=== PATIENT | male | born 1965 | race Caucasian/White ===

== ENCOUNTER → 2016-03-05 | Outpatient (CLI) | payer BC ==
[2016-03-05 07:46] LABS: ALT 36 U/L (21-72); AST 28 U/L (17-59); Alkaline Phosphatase 71 U/L (38-126); Anion Gap 9 mmol/L; Blood Urea Nitrogen 18 mg/dL (9-20); Calcium 9.1 mg/dL (8.4-10.2); Carbon Dioxide 31 mmol/L (22-30); Chloride 104 mmol/L (98-107); Cholesterol 161 mg/dL (<200); Glucose 119 mg/dL (74-99); HDL Cholesterol 41 mg/dL (40-60); Non-African American GFR(MDRD) >60 (>60 ml/min/1.73 sqM); Potassium 4.7 mmol/L (3.5-5.1); Sodium 144 mmol/L (137-145); Total Bilirubin 0.8 mg/dL (0.2-1.3); Total Protein 6.6 g/dL (6.3-8.2); Triglycerides 46 mg/dL (<150)
== END | disposition home or self-care (01) ==
LOC: LABWHC1 06:37
PROVIDERS: ATTEND Internal Medicine Endocrinology, Diabetes & Metabolism
DX: E10.65 Type 1 diabetes mellitus with hyperglycemia (principal)
CPT/HCPCS: 36415; 80053; 80061; 82043

== ENCOUNTER 2016-03-31 07:44 | Day surgery (SDC) | payer BC ==
[2016-03-26 09:19] VITALS: BMI 27.1
[2016-03-31 08:10] VITALS: RESP 16; TEMP 98
[2016-03-31] MEDS: LIDOCAINE 1% 20 ML VIAL (10MG/ML) FOR IV START INTRADERMA PRN (08:28)
[2016-03-31] MEDS: LACTATED RINGERS 1,000 ML IV SCH (08:28)
[2016-03-31 08:33] LABS: Glucose,Whole Blood 184 mg/dL (75-99)
[2016-03-31] MEDS ORDERED: PROPOFOL 10 MG/ML 20 ML VIAL IV ONE (09:02)
--- NOTE | 2016-03-31 09:35 | P.PCN ---
Date of Procedure: 03/31/16 Procedure(s) Performed: BRIEF HISTORY: Patient is a 50-year-old pleasant white male, scheduled for an elective colonoscopy as a part of evaluation of prior history of colon polyps. Last colonoscopy was done in May 1999 and was noted to have rectal polyps that were removed and all of which showed inflamed mucosal polyp with no evidence of dysplasia. The patient was noted to have these rectal polyps in 2012 and since then has been having annual sigmoidoscopies. PROCEDURE PERFORMED: Colonoscopy with snare polypectomy PREOPERATIVE DIAGNOSIS: follow-up colon polyp IV sedation per Anesthesia. PROCEDURE: After informed consent was obtained, the patient, was brought into the endoscopy unit. IV conscious sedation was administered by Anesthesia under continuous monitoring. Initially the Olympus CF-160 flexible video colonoscope was then inserted in the rectum, gradually advanced into the cecum without any difficulty. Careful examination was performed as the scope was gradually being withdrawn. Ileocecal valve and the appendiceal orifice were visualized and appeared normal. Prep was excellent. Mucosa of the cecum, ascending colon, transverse colon, descending colon, appeared normal. In the distal sigmoid colon there was a 1 cm polyp removed by snare polypectomy. In the rectum there were 3 polyps measuring 1 cm, 3 cm and 2 cm polyps which were removed by snare polypectomy. The largest polyp which was 3 cm broad-based was not completely removed. Retroflexion was performed in the rectum and no lesions were seen. The patient tolerated the procedure well. IMPRESSION: 1 cm rectal distal sigmoid polyp status post polypectomy 1 cm, 2 cm and 3 cm broad-based mid rectal polyps status post piecemeal snare polypectomy and the largest polyp could not be removed completely. RECOMMENDATIONS: Findings of this examination were discussed with the patient as well as his family. He was advised to follow with the biopsy results and he' ll be seen in the office in a week from now. Based the biopsy results will plan a repeat Sigmoidoscopy in 6 Months to One Year.
[2016-03-31 10:01] VITALS: BP 143/83; PULSE 74
== END 2016-03-31 10:33 | disposition home or self-care (01) ==
LOC: ORWHC2ENDO 07:44
PROVIDERS: ATTEND Internal Medicine Gastroenterology
DX: Z12.11 Encounter for screening for malignant neoplasm of colon (principal); D12.5 Benign neoplasm of sigmoid colon; K62.1 Rectal polyp; Z86.010 Personal history of colon polyps; I10 Essential (primary) hypertension; E78.5 Hyperlipidemia, unspecified; E11.9 Type 2 diabetes mellitus without complications; Z79.4 Long term (current) use of insulin; Z96.41 Presence of insulin pump (external) (internal); Z79.899 Other long term (current) drug therapy
CPT/HCPCS: 88305; 45385; J2704; 99153

== ENCOUNTER → 2017-01-22 | Outpatient (CLI) | payer BC ==
[2017-01-22 09:53] LABS: CH 32.1; CHCM 32.3; HCT 46.1 % (39.0-53.0); HDW 2.26; HGB 14.8 gm/dL (13.0-17.5); MCH 32.2 pg (25.0-35.0); MCHC 32.2 g/dL (31.0-37.0); MCV 99.8 fL (80.0-100.0); RBC 4.62 m/uL (4.30-5.90); RDW 14.2 % (11.5-15.5); WBC 5.7 k/uL (3.8-10.6)
[2017-01-22 10:13] LABS: ALT 50 U/L (21-72); AST 27 U/L (17-59); Alkaline Phosphatase 84 U/L (38-126); Anion Gap 7 mmol/L; Blood Urea Nitrogen 14 mg/dL (9-20); Calcium 9.6 mg/dL (8.4-10.2); Carbon Dioxide 31 mmol/L (22-30); Chloride 101 mmol/L (98-107); Cholesterol 149 mg/dL (<200); Glucose 167 mg/dL (74-99); HDL Cholesterol 47 mg/dL (40-60); Non-African American GFR(MDRD) >60 (>60 ml/min/1.73 sqM); Potassium 5.3 mmol/L (3.5-5.1); Sodium 139 mmol/L (137-145); Total Bilirubin 0.6 mg/dL (0.2-1.3)
== END | disposition home or self-care (01) ==
LOC: LABWHC1 09:22
PROVIDERS: ATTEND Internal Medicine Endocrinology, Diabetes & Metabolism
DX: E10.65 Type 1 diabetes mellitus with hyperglycemia (principal); I10 Essential (primary) hypertension
CPT/HCPCS: 36415; 80053; 80061; 83036; 84443; 85027

== ENCOUNTER → 2017-03-12 | Outpatient (CLI) | payer BC ==
[2017-03-12 07:25] LABS: HCT 44.7 % (39.0-53.0); HGB 14.4 gm/dL (13.0-17.5); MCH 31.3 pg (25.0-35.0); MCHC 32.3 g/dL (31.0-37.0); MCV 96.9 fL (80.0-100.0); Mean Platelet Volume 7.7; Platelet Count 248 k/uL (150-450); RBC 4.61 m/uL (4.30-5.90); RDW 12.9 % (11.5-15.5); WBC 6.1 k/uL (3.8-10.6)
[2017-03-12 07:39] LABS: ALT 35 U/L (21-72); AST 24 U/L (17-59); Alkaline Phosphatase 75 U/L (38-126); Anion Gap 9 mmol/L; Blood Urea Nitrogen 29 mg/dL (9-20); Calcium 9.5 mg/dL (8.4-10.2); Carbon Dioxide 29 mmol/L (22-30); Chloride 105 mmol/L (98-107); Cholesterol 143 mg/dL (<200); Glucose 78 mg/dL (74-99); HDL Cholesterol 42 mg/dL (40-60); LDL Cholesterol,Calculated 88 mg/dL (0-99); Potassium 4.5 mmol/L (3.5-5.1); Sodium 143 mmol/L (137-145); Total Bilirubin 0.6 mg/dL (0.2-1.3); Total Protein 6.7 g/dL (6.3-8.2); Triglycerides 64 mg/dL (<150)
[2017-03-12 12:40] LABS: Hemoglobin A1C 8.3 % (4.0-6.0)
== END | disposition home or self-care (01) ==
LOC: LABWHC1 07:07
PROVIDERS: ATTEND Physician Assistant Medical
DX: E11.9 Type 2 diabetes mellitus without complications (principal); I10 Essential (primary) hypertension
CPT/HCPCS: 36415; 80053; 80061; 83036; 84443; 85027

== ENCOUNTER 2017-04-14 05:57 | Day surgery (SDC) | payer BC ==
[2017-04-12 16:24] VITALS: BMI 27.1
--- NOTE | 2017-04-13 17:50 | HP ---
HISTORY AND PHYSICAL DATE OF ADMISSION: Surgery scheduled for 04/14/2017 HISTORY OF PRESENT ILLNESS: Francis Sparks is a 51-year-old patient seen with progressive right shoulder pain. Treatment options were discussed. He elected to proceed with right shoulder arthroscopy. Consent regarding procedure was obtained. Medical clearance was provided by Dr. Olea. Pulmonary clearance was provided by Dr. Rushing. PAST MEDICAL HISTORY: Hyperlipidemia, insulin-dependent diabetes, hypertension. PAST SURGICAL HISTORY: Noncontributory. DAILY MEDICATIONS: Atorvastatin, NovoLog, ramipril. ALLERGIES: None. SOCIAL HISTORY: Patient denies tobacco use. PHYSICAL EXAMINATION: Evaluation right shoulder flexion is 90 degrees, abduction is 80 degrees. External rotation is 20 degrees. Tenderness along the anterolateral acromion rotator cuff insertion site. Positive impingement sign at 120. Distal neurovascular exam is intact. RADIOGRAPHS: Radiographs of the right shoulder revealed a type 2 anterior acromion. Cystic changes of the greater tuberosity. An MRI of the shoulder revealed abnormality of the rotator cuff as well as acromioclavicular joint osteoarthritis and impingement. IMPRESSION: Right shoulder impingement with possible rotator cuff tear and acromioclavicular joint osteoarthritis. PLAN: Right shoulder arthroscopy, subacromial decompression, possible arthroscopic rotator cuff repair, possible Carrol procedure, lysis of adhesions and debridement. MMODL / IJN: [id number] /
[~2017-04-14 05:57] MED LIST: DEXAMETHASONE SOD PHOSPHATE 10 MG/ML 1 ML VIAL IV ONE; HYDROmorphone 0.5 MG/0.5 ML SYRINGE IVP PRN; LACTATED RINGERS 1,000 ML IV SCH; LIDOCAINE 1% 20 ML VIAL (10MG/ML) FOR IV START INTRADERMA PRN; ONDANSETRON 4 MG/2 ML VIAL IVP ONE; SCOPOLAMINE 1.5MG/72HR PATCH TRANSDERM ONE; ceFAZolin IN SWFI 2 GM/20 ML SYRINGE IVP ONE
[2017-04-14 06:40] LABS: Glucose,Whole Blood 146 mg/dL (75-99)
[2017-04-14] MEDS: MIDAZOLAM 2 MG/2 ML VIAL IV PRN ×2 (06:50→07:02)
[2017-04-14] MEDS ORDERED: PROPOFOL 10 MG/ML 20 ML VIAL IV ONE (07:24)
[2017-04-14] MEDS ORDERED: PHENYLEPHRINE-0.9% NACL SYG 1 MG/10 ML SYRINGE ONE (07:24)
[2017-04-14] MEDS ORDERED: SUCCINYLCHOLINE CHLORIDE 100 MG/5 ML SYR IV ONE (07:24)
[2017-04-14] MEDS ORDERED: ROPIVACAINE 5 MG/ML 30 ML VIAL ONE (07:24)
[2017-04-14] MEDS ORDERED: LIDOCAINE 1% INJ 10MG/ML (20 ML MDV) ONE (07:24)
[2017-04-14] MEDS ORDERED: fentaNYL (PF) 50 MCG/ML 2 ML AMP ONE (07:24)
[2017-04-14] MEDS ORDERED: LIDOCAINE 2%-EPI 1:100,000 20 ML VIAL ONE (07:24)
[2017-04-14] MEDS ORDERED: MIDAZOLAM 2 MG/2 ML VIAL ONE (07:24)
[2017-04-14] MEDS ORDERED: LACTATED RINGERS 1,000 ML IV ONE (07:56)
[2017-04-14 08:49] LABS: Glucose,Whole Blood 222 mg/dL (75-99)
[2017-04-14 09:19] LABS: Glucose,Whole Blood 200 mg/dL (75-99)
--- NOTE | 2017-04-14 09:25 | P.OP ---
Date of Procedure: 04/14/17 Preoperative Diagnosis: Right shoulder impingement Postoperative Diagnosis: 1. Right shoulder rotator cuff tear 2. Right shoulder impingement 3. Right shoulder acromioclavicular joint osteoarthritis 4. Right shoulder superficial labral tear Procedure(s) Performed: 1. Right shoulder arthroscopic rotator cuff repair 2. Right shoulder arthroscopic subacromial decompression 3. Right shoulder arthroscopic Carrol procedure 4. Right shoulder arthroscopic debridement labral tear Implants: 1-5.5 peek anchors Anesthesia: GETA, regional (Interscalene block) Surgeon: Cal [facility] [employer] Toll Wire Chief #1: Chris Davis Estimated Blood Loss (ml): 13 Pathology: none sent Condition: stable Disposition: PACU Indications for Procedure: 51-year-old patient seen with progressive right shoulder pain. After having treatment options discussed, he elected to proceed with arthroscopy. Operative Findings: see description of procedure Description of Procedure: Patient underwent a shoulder block by department of anesthesia. The patient was then taken to the operative suite. The patient underwent a general anesthetic by the department of anesthesia. The patient was placed into a lateral position and secured. There was appropriate padding of the bony prominence. Right shoulder was then prepped and draped in normal sterile orthopedic fashion. We placed the extremity in 10 pounds of longitudinal traction. A posterior incision was now made for a posterior working portal site. The trocar and cannula were inserted into the glenohumeral joint. Arthroscopy was initiated. Spinal needle was now inserted anteriorly, to ascertain the anterior working portal site. An incision was now made in that area, a trocar was inserted followed by a probe. Was superficial tearing of the anterior labrum present. There was some superficial tearing of the superior labrum present. The biceps tendon was mildly hyperemic but no evidence for any partial tearing. The anchor appeared stable. There were mild grade 1 chondromalacia changes glenohumeral joint. I debrided the labral tears down to stable tissue. The residual labrum was stable. Instruments were now removed from glenohumeral joint. Utilizing the posterior working portal site, the trocar and cannula were inserted into the subacromial space. Arthroscopy initiated. I made an incision 2 fingerbreadths lateral to the acromion. I introduced my trocar followed by my ArthroCare ablator. I now began ablating thick subacromial bursal tissue, which exposed the undersurface of the anterior acromion. This was diminished subacromial space. There was a very prominent anterior acromion. A motorized bur was introduced and a subacromial decompression was performed. I also excised some osteophytes off the inferior aspect of the distal clavicle. The AC joint was visualized and noted to be fairly arthritic. Our motorized bur was introduced in the anterior portal site and a Carrol procedure was performed without difficulty, decompressing the AC joint nicely. I turned my attention to the rotator cuff. There was some superficial tearing noted of the midportion of the distal supraspinatus. I debrided that down to stable tissue. I noted an area of partial tearing more anteriorly. I debrided that down to stable tissue. I probed the area and noted a full thickness perforation. That area was now debrided down to stable tissue. I noted about a 1 cm defect. It was freely mobile over the footprint. I abraded the footprint with a motorized bur. I passed 2 everted mattress sutures through good bites of rotator cuff tendon. I introduced one single 5.5 peek anchor compressing the tendon along the footprint nicely. Residual suture limbs were clipped. The repair was probed and found to be stable. I injected 1 mL of UCT intra-articular. Instruments now removed from the portal sites. All portal sites were approximated with nylon suture. Sterile dressings were applied followed by a shoulder immobilizer. Ousmane FRANCOIS assisted with the procedure. The patient was awakened, transferred to a bed, and taken to recovery in stable condition.
[2017-04-14 09:34] VITALS: TEMP 97.2
[2017-04-14 09:38] VITALS: RESP 16
[2017-04-14 10:07] LABS: Glucose,Whole Blood 220 mg/dL (75-99)
[2017-04-14] MEDS ORDERED: HYDROcodone/APAP 7.5-325MG 1 EACH TAB PO ONE (10:15)
[2017-04-14 10:26] VITALS: BP 155/89; PULSE 89
--- NOTE | 2017-04-14 12:51 | P.ONQ ---
Anesthesiology Proc Note - PNB - Peripheral Nerve Block Performed Right Interscalene Indication: Acute Post-Operative Pain, Requested by physician (Smiley) Sedation Type: Sedate with meaningful contact maintained Preparation: Sterile Dressing Position: Supine Catheter: None Needle Types: Other (see comment) (Linh) Needle Size: 50mm (2") Needle Gauge: 21 Technique: Ultrasound (0.5% Ropivacaine 15cc, Lidocaine 1% with 1:100:000 epi) Blood Aspirated: No Pain Paresthesia on Injection Noted: No Resistance on Injection: Normal Events: Uneventful and Well Tolerated
== END 2017-04-14 11:05 | disposition home or self-care (01) ==
LOC: OR 05:57
PROVIDERS: ATTEND Orthopaedic Surgery
DX: M75.101 Unspecified rotator cuff tear or rupture of right shoulder, not specified as traumatic (principal); M25.811 Other specified joint disorders, right shoulder; M19.011 Primary osteoarthritis, right shoulder; S43.401A Unspecified sprain of right shoulder joint, initial encounter; X58.XXXA Exposure to other specified factors, initial encounter; M94.211 Chondromalacia, right shoulder; M25.711 Osteophyte, right shoulder; E78.5 Hyperlipidemia, unspecified; E11.9 Type 2 diabetes mellitus without complications; Z79.4 Long term (current) use of insulin; I10 Essential (primary) hypertension; Z79.899 Other long term (current) drug therapy; Z79.1 Long term (current) use of non-steroidal anti-inflammatories (NSAID)
CPT/HCPCS: 64415

== ENCOUNTER → 2017-08-26 | Outpatient (CLI) | payer BC | END | disposition home or self-care (01) | LOC: LABWHC1 16:39 | PROVIDERS: ATTEND Family Medicine | DX: Z13.88 Encounter for screening for disorder due to exposure to contaminants (principal) | CPT/HCPCS: 36415; 83655 ==

== ENCOUNTER → 2017-10-08 | Outpatient (CLI) | payer BC ==
[2017-10-08 08:36] LABS: Anion Gap 4 mmol/L; Calcium 9.1 mg/dL (8.4-10.2); Carbon Dioxide 32 mmol/L (22-30); Chloride 105 mmol/L (98-107); Cholesterol 147 mg/dL (<200); Glucose 97 mg/dL (74-99); HDL Cholesterol 38 mg/dL (40-60); LDL Cholesterol,Calculated 94 mg/dL (0-99); Sodium 141 mmol/L (137-145); Total Bilirubin 0.7 mg/dL (0.2-1.3); Total Protein 6.6 g/dL (6.3-8.2); Triglycerides 73 mg/dL (<150)
[2017-10-08 08:47] LABS: ALT 32 U/L (21-72); AST 28 U/L (17-59); Alkaline Phosphatase 62 U/L (38-126); Blood Urea Nitrogen 19 mg/dL (9-20)
[2017-10-08 17:22] LABS: Hemoglobin A1C 9.6 % (4.0-6.0)
== END | disposition home or self-care (01) ==
LOC: LABWHC1 08:05
PROVIDERS: ATTEND Internal Medicine Endocrinology, Diabetes & Metabolism
DX: E10.65 Type 1 diabetes mellitus with hyperglycemia (principal)
CPT/HCPCS: 36415; 80053; 80061; 82043; 82570; 83036; 84443

== ENCOUNTER → 2018-02-11 | Outpatient (CLI) | payer BC ==
[2018-02-11 16:54] LABS: ALT 27 U/L (10-49); AST 29 U/L (14-35); Albumin/Globulin Ratio 2.21 (1.20-2.10); Alkaline Phosphatase 69 U/L (41-126); Calcium 9.2 mg/dL (8.7-10.3); Carbon Dioxide 29.3 mmol/L (21.6-31.8); Chloride 106 mmol/L (96-109); Cholesterol 138 mg/dL (0-200); Globulin 1.9 g/dL (2.1-3.7); Glucose 110 mg/dL (70-110); Potassium 5.5 mmol/L (3.5-5.5); Sodium 140 mmol/L (135-145); Total Bilirubin 0.8 mg/dL (0.2-1.2); Total Protein 6.1 g/dL (6.2-8.2); Triglycerides <50.0 mg/dL (0.0-149.0); VLDL Calculation 9.98 mg/dL (5.00-40.00)
[2018-02-11 18:34] LABS: Hemoglobin A1C 7.6 % (4.0-6.0)
== END | disposition home or self-care (01) ==
LOC: LABWHC1 08:51
PROVIDERS: ATTEND Internal Medicine Endocrinology, Diabetes & Metabolism
DX: E10.65 Type 1 diabetes mellitus with hyperglycemia (principal)
CPT/HCPCS: 36415; 80053; 80061; 82043; 82570; 83036; 84443

== ENCOUNTER → 2018-09-02 | Outpatient (CLI) | payer BC ==
[2018-09-02 17:11] LABS: African American GFR (CKD) 99.8 (60.0-200.0); Albumin 4.1 g/dL (3.80-4.90); Albumin/Globulin Ratio 1.95 (1.60-3.17); Anion Gap 3.2 mmol/L (4.00-12.00); Calcium 9.2 mg/dL (8.7-10.3); Carbon Dioxide 28.8 mmol/L (21.6-31.8); Globulin 2.1 g/dL (1.6-3.3); LDL Cholesterol,Calculated 93.6 mg/dL (0.0-131.0); Potassium 5.3 mmol/L (3.5-5.5); Total Bilirubin 0.6 mg/dL (0.3-1.2); Total Protein 6.2 g/dL (6.2-8.2); VLDL Calculation 11.4 mg/dL (5.00-40.00)
[2018-09-02 20:37] LABS: Hemoglobin A1C 8.5 % (4.0-6.0)
== END | disposition home or self-care (01) ==
LOC: LABWHC1 08:01
PROVIDERS: ATTEND Internal Medicine Endocrinology, Diabetes & Metabolism
DX: E10.65 Type 1 diabetes mellitus with hyperglycemia (principal)
CPT/HCPCS: 36415; 80053; 80061; 82043; 82570; 83036; 84443

== ENCOUNTER → 2019-03-03 | Outpatient (CLI) | payer BC ==
[2019-03-03 16:58] LABS: Microalbumin Creatinine Ratio <30 mg/g Creat (0-30)
[2019-03-03 17:20] LABS: African American GFR (CKD) 99.1 (60.0-200.0); Anion Gap 4.5 mmol/L (4.00-12.00); Calcium 9.1 mg/dL (8.7-10.3); Carbon Dioxide 31.5 mmol/L (21.6-31.8); Chol/HDL Ratio 4.27; Non-African American GFR(CKD) 85.5 (60.0-200.0); Total Bilirubin 0.6 mg/dL (0.3-1.2)
[2019-03-03 17:52] LABS: Hemoglobin A1C 8.3 % (4.0-6.0)
== END | disposition home or self-care (01) ==
LOC: LABWHC1 09:00
PROVIDERS: ATTEND Internal Medicine Endocrinology, Diabetes & Metabolism
DX: E10.65 Type 1 diabetes mellitus with hyperglycemia (principal)
CPT/HCPCS: 36415; 80053; 80061; 82043; 82570; 83036; 84443

== ENCOUNTER → 2020-01-05 | Outpatient (CLI) | payer BC ==
[2020-01-05 11:23] LABS: African American GFR (CKD) 98.5 (60.0-200.0); Albumin 4.4 g/dL (3.80-4.90); Albumin/Globulin Ratio 1.91 (1.60-3.17); Anion Gap 4.9 mmol/L (4.00-12.00); Calcium 9.4 mg/dL (8.7-10.3); Carbon Dioxide 30.1 mmol/L (21.6-31.8); Chol/HDL Ratio 4.05; Globulin 2.3 g/dL (1.6-3.3); LDL Cholesterol,Calculated 115.2 mg/dL (0.0-131.0); Non-African American GFR(CKD) 84.9 (60.0-200.0); Potassium 5.2 mmol/L (3.5-5.5); Total Bilirubin 0.8 mg/dL (0.3-1.2); Total Protein 6.7 g/dL (6.2-8.2); VLDL Calculation 12.8 mg/dL (5.00-40.00)
[2020-01-05 16:07] LABS: Hemoglobin A1C 8.2 % (4.0-6.0)
== END | disposition home or self-care (01) ==
LOC: LABMAIN 07:20
PROVIDERS: ATTEND Internal Medicine Endocrinology, Diabetes & Metabolism
DX: E10.65 Type 1 diabetes mellitus with hyperglycemia (principal)
CPT/HCPCS: 36415; 80053; 80061; 82043; 82570; 83036; 84443

== ENCOUNTER → 2020-04-04 | Outpatient (CLI) | payer BC ==
[2020-04-04 10:49] LABS: African American GFR (CKD) 98.5 (60.0-200.0); Albumin 4.2 g/dL (3.80-4.90); Albumin/Globulin Ratio 2.21 (1.60-3.17); Anion Gap 4.4 mmol/L (4.00-12.00); Calcium 9.2 mg/dL (8.7-10.3); Carbon Dioxide 31.6 mmol/L (21.6-31.8); Chol/HDL Ratio 3.33; Globulin 1.9 g/dL (1.6-3.3); Non-African American GFR(CKD) 84.9 (60.0-200.0); Potassium 5.1 mmol/L (3.5-5.5); Total Bilirubin 0.8 mg/dL (0.2-1.2); Total Protein 6.1 g/dL (6.2-8.2)
[2020-04-04 10:56] LABS: Microalbumin Creatinine Ratio <30 mg/g Creat (0-30); Urine Creatinine 106.1 mg/dL
[2020-04-04 14:26] LABS: Hemoglobin A1C 8.6 % (4.0-6.0)
== END | disposition home or self-care (01) ==
LOC: LABWHC1 07:41
PROVIDERS: ATTEND Internal Medicine Endocrinology, Diabetes & Metabolism
DX: E10.65 Type 1 diabetes mellitus with hyperglycemia (principal)
CPT/HCPCS: 36415; 80053; 80061; 82043; 82570; 83036; 84443

== ENCOUNTER → 2020-11-07 | Outpatient (CLI) | payer BC ==
[2020-11-07 17:27] LABS: Hemoglobin A1C 8.2 % (4.0-6.0)
[2020-11-07 22:32] LABS: African American GFR (CKD) 111.8 (60.0-200.0); Albumin 4.1 g/dL (3.80-4.90); Albumin/Globulin Ratio 1.78 (1.60-3.17); Anion Gap 10.8 mmol/L (4.00-12.00); BUN/Creat Ratio 17.78 Ratio (12.00-20.00); Carbon Dioxide 23.2 mmol/L (21.6-31.8); Chol/HDL Ratio 3.79; Globulin 2.3 g/dL (1.6-3.3); LDL Cholesterol,Calculated 91.4 mg/dL (0.0-131.0); Non-African American GFR(CKD) 96.5 (60.0-200.0); Potassium 4.7 mmol/L (3.5-5.5); Total Bilirubin 0.8 mg/dL (0.2-1.2); Total Protein 6.4 g/dL (6.2-8.2); VLDL Calculation 14.6 mg/dL (5.00-40.00)
[2020-11-10 15:33] LABS: Urine Creatinine 180.2 mg/dL
== END | disposition home or self-care (01) ==
LOC: LABWHC1 08:39
PROVIDERS: ATTEND Internal Medicine Endocrinology, Diabetes & Metabolism
DX: E10.65 Type 1 diabetes mellitus with hyperglycemia (principal)
CPT/HCPCS: 36415; 80053; 80061; 82043; 82570; 83036; 84443

== ENCOUNTER → 2020-12-22 | Outpatient (CLI) | payer BC ==
--- NOTE | 2020-12-22 15:16 | NM ---
EXAMINATION TYPE: NM stress cardiolite complete DATE OF EXAM: 12/22/2020 COMPARISON: NONE HISTORY: RO7.9, chest pain TECHNIQUE: After the intravenous administration of 10.58 mCi Tc 99m Sestamibi - Rest images obtained 60 minutes post injection. The patient exercised using a VAMSI protocol and 1 minute prior to peak exercise was injected with 24.8 mCi Tc 99m Sestamibi - Stress images obtained 30 minutes post inject ion. FINDINGS: Targeted heart rate was achieved during performance of the study, patient achieved 92% of predicted m aximal heart rate. Review of stress and rest SPECT images demonstrates no distinct perfusion abnormal ity. Gated analysis shows normal wall motion with an estimated left ventricular ejection fraction of 59 %. IMPRESSION: No scintigraphic evidence for reversible ischemia
--- NOTE | 2020-12-22 15:42 | EST ---
EXERCISE STRESS AGE: 55 SEX: M HT: 6' WT: 210 PROTOCOL: Cardiolite Stress Test STAGE: 3 DURATION OF EXERCISE: 9:15 HEART RATE REST: 73 BLOOD PRESSURE REST: 153/85 MAXIMUM HEART RATE ACHIEVED: 151 MAXIMUM BLOOD PRESSURE: 218/85 85% MPHR: 140 100% MPHR: 165 METS: 10.6 INDICATIONS: Chest pain. CLINICAL INFORMATION: Baseline EKG shows sinus rhythm, normal axis, normal intervals. Patient exercised on Vinayak protocol for a total of 9 minutes, achieving 10 METS, 92% of predicted maximal heart rate, without chest pain or diagnostic ST-segment depression. CONCLUSIONS: 1. Good exercise tolerance. 2. Negative stress test by EKG criteria. 3. Cardiolite portion of the stress test will be reported separately. MMODL / IJN: [id number] /
== END | disposition home or self-care (01) ==
LOC: RADNMMAIN 08:16
PROVIDERS: ATTEND Family Medicine
DX: R07.9 Chest pain, unspecified (principal)
CPT/HCPCS: 93017; 78452; A9500

== ENCOUNTER → 2021-02-25 | Day surgery (SDC) | payer BC ==
[~2021-02-25] MED LIST changes: -DEXAMETHASONE SOD PHOSPHATE 10 MG/ML 1 ML VIAL IV ONE; -HYDROmorphone 0.5 MG/0.5 ML SYRINGE IVP PRN; +LIDOCAINE 1% (10MG/ML) FOR IV START INTRADERMA PRN; -LIDOCAINE 1% 20 ML VIAL (10MG/ML) FOR IV START INTRADERMA PRN; -ONDANSETRON 4 MG/2 ML VIAL IVP ONE; +PROPOFOL 10 MG/ML 20 ML VIAL IV ONE; -SCOPOLAMINE 1.5MG/72HR PATCH TRANSDERM ONE; -ceFAZolin IN SWFI 2 GM/20 ML SYRINGE IVP ONE
[2021-02-25 07:10] LABS: Glucose,Whole Blood 225 mg/dL (75-99)
[2021-02-25 07:13] VITALS: RESP 16; TEMP 98.2
--- NOTE | 2021-02-25 07:49 | P.PCN ---
Date of Procedure: 02/25/21 Procedure(s) Performed: BRIEF HISTORY: Patient is a 55-year-old pleasant white male scheduled for an elective colonoscopy as a part of surveillance of multiple hyperplastic polyps noted in the rectum and sigmoid colon in the last 5 years duration. He had large sessile rectal hyperplastic polyps for which she underwent colonoscopy with snare polypectomy at [facility] in April 2018 and biopsies revealed hyperplastic polyp noted suggestive dysphagia. He scheduled for a surveillance colonoscopy today. PROCEDURE PERFORMED: Colonoscopy with snare polypectomy and Endo Clip placement. PREOPERATIVE DIAGNOSIS: Follow-up large rectal polyps. IV sedation per Anesthesia. PROCEDURE: After informed consent was obtained, the patient, was brought into the endoscopy unit. IV sedation was administered by Anesthesia under continuous monitoring. Digital rectal examination was normal. Initially the Olympus CF-160 flexible video colonoscope was then inserted in the rectum, gradually advanced into the cecum without any difficulty. Careful examination was performed as the scope was gradually being withdrawn. Ileocecal valve and the appendiceal orifice were visualized and appeared normal. Prep was fair.. Mucosa of the cecum, ascending colon, transverse colon, descending colon, appeared normal. In the sigmoid: There were at least 7 or 8 polyps all measuring between 3-6 mm in size which were removed by snare polypectomy. In the mid rectum there was a 3 cm slightly raised polyp which was removed by piecemeal snare polypectomy followed by Endo Clip placement. Adjacent to this area there were 3 or 4 small sessile polyp that was removed by snare polypectomy. Some exudates noted in the distal rectum. Retroflexion was performed in the rectum and no lesions were seen. The patient tolerated the procedure well. IMPRESSION: Multiple polyps measuring 3-6 m in size located in the sigmoid colon status post polypectomy Large sessile mid rectal polyp measuring 3 cm in size with exudates status post piecemeal snare polypectomy and partial polypectomy accomplished followed by Endo Clip placement RECOMMENDATIONS: Findings of this examination were discussed with the patient as well as his family. He was advised to follow with the biopsy results. He'll be seen in office in 1 week and based on that was biopsy results will plan a repeat Sigmoidoscopy in 6 months to one year..
[2021-02-25 07:53] VITALS: PULSE 80
[2021-02-25 08:08] VITALS: BP 131/85
== END ==
LOC: ORWHC2ENDO 06:19
PROVIDERS: ATTEND Internal Medicine Gastroenterology
DX: K62.1 Rectal polyp (principal)
CPT/HCPCS: 45382; 45385; J2704; 88305

== ENCOUNTER 2021-04-30 20:22 | Emergency (ER) | payer BC ==
[2021-04-30 21:01] VITALS: RESP 16; TEMP 97.9
[2021-04-30] MEDS ORDERED: PENICILLIN V POTASSIUM 250 MG TAB PO STA (22:00)
[2021-04-30] MEDS ORDERED: ACETAMINOPHEN TAB 500 MG TAB PO STA (22:01)
--- NOTE | 2021-04-30 22:04 | ED ---
ENT HPI - General Chief complaint: Dental/Oral Stated complaint: Oral pain Time Seen by Provider: 04/30/21 21:47 Source: patient, RN notes reviewed Mode of arrival: ambulatory Limitations: no limitations - History of Present Illness Initial comments: This is a pleasant, 55-year-old diabetic male presents to the emergency back complaining of left lower molar pain which isn't bothering him for one day. He states when he bites down he feels some pressure over the area. Also noticed a swollen lymph node in the left submandibular area. No airway problems. No difficulty with swallowing. No ear pain. No fever or chills. Patient is a nonsmoker. He has not seen a dentist. Insulin controlled diabetic. Blood sugar running just over 200. No headache, no fever or chills, no changes in vision or hearing, no sore throat or difficulty with speech, no neck pain, no chest pain or shortness of breath, no abdominal pain, no nausea or vomiting, no changes in urination or bowel movements, no numbness or tingling, no extremity pain, no skin rashes or lesions. MD complaint: tooth pain - Related Data Home Medications Medication Instructions Recorded Confirmed INSULIN ASPART (NovoLOG) [NovoLOG] 0 unit SQ CONTINUOUS 05/27/14 02/25/21 Atorvastatin [Lipitor] 40 mg PO HS 05/29/14 02/25/21 lisinopriL 30 mg PO HS 02/19/21 02/25/21 Previous Rx's Medication Instructions Recorded Acetaminophen [Tylenol] 500 mg PO Q4-6H PRN #24 tab 04/30/21 Ibuprofen [Motrin] 600 mg PO Q8HR PRN #30 tab 04/30/21 Penicillin V Potassium [Pen Vee K] 500 mg PO QID #40 tablet 04/30/21 Allergies Allergy/AdvReac Type Severity Reaction Status Date / Time No Known Allergies Allergy Verified 04/30/21 21:01 Review of Systems ROS Statement: Those systems with pertinent positive or pertinent negative responses have been documented in the HPI. ROS Other: All systems not noted in ROS Statement are negative. Past Medical History Past Medical History: Diabetes Mellitus, Hyperlipidemia, Hypertension Additional Past Medical History / Comment(s): Insulin pump, Hx of colon polyps. History of Any Multi-Drug Resistant Organisms: None Reported Past Surgical History: Orthopedic Surgery Additional Past Surgical History / Comment(s): LEFT ROTATOR CUFF. Rt Hand Past Anesthesia/Blood Transfusion Reactions: No Reported Reaction Past Psychological History: No Psychological Hx Reported Smoking Status: Former smoker Past Alcohol Use History: None Reported Past Drug Use History: None Reported - Past Family History Brother(s) Family Medical History: Cancer General Exam - General Exam Comments Initial Comments: Healthy-appearing 55-year-old male in no acute distress. Vital signs stable, patient afebrile, capillary refill less than 2 seconds Limitations: no limitations General appearance: alert, in no apparent distress Head exam: Present: atraumatic, normocephalic, normal inspection Eye exam: Present: normal appearance, PERRL, EOMI. Absent: scleral icterus, conjunctival injection, periorbital swelling ENT exam: Present: normal exam, mucous membranes moist, TM's normal bilaterally, normal external ear exam Expanded Ear exam: Present: normal external inspection. Absent: auricular hematoma, auricular trauma Mouth exam: Present: normal external inspection, tongue normal. Absent: drooling, trismus, muffled voice, tongue elevation, laceration Teeth exam: Present: dental tenderness # (15), gingival enlargement, other (Patient has minimal edema noted adjacent to tooth #15. No evidence of intraoral cellulitis, no evidence of peritonsillar abscess, no evidence of deep space infection or airway compromise.). Absent: dental caries, fractured tooth # Neck exam: Present: normal inspection. Absent: tenderness, meningismus, lymphadenopathy Respiratory exam: Present: normal lung sounds bilaterally. Absent: respiratory distress, wheezes, rales, rhonchi, stridor Cardiovascular Exam: Present: regular rate, normal rhythm, normal heart sounds. Absent: systolic murmur, diastolic murmur, rubs, gallop, clicks GI/Abdominal exam: Present: soft, normal bowel sounds. Absent: distended, tenderness, guarding, rebound, rigid Extremities exam: Present: normal inspection, full ROM, normal capillary refill. Absent: tenderness, pedal edema, joint swelling, calf tenderness Back exam: Present: normal inspection Neurological exam: Present: alert, oriented X3, CN II-XII intact Psychiatric exam: Present: normal affect, normal mood Skin exam: Present: warm, dry, intact, normal color. Absent: rash Course Vital Signs 04/30/21 20:58 Temperature 97.9 F Pulse Rate 76 Respiratory 16 Rate Blood Pressure 155/76 O2 Sat by Pulse 99 Oximetry Medical Decision Making - Medical Decision Making Patient presents with isolated dental pain, probable early dental abscess. No evidence of deep space infection, peritonsillar abscess, or Juan angina. Patient was told to return to the ER for any signs or symptoms worsen. Told to return immediately if any other problems arise. All questions answered. Treatment plan discussed. Patient in agreement Every effort has been made to ensure accuracy of this dictation. However, due to the limitations of electronic medical records and dictation devices, errors in charting still occur. Patient told to follow up with dentist as soon as possible. Monitor sugars closely. Touch base with the regular physician. Patient in understanding. Pen VK 500 mg 4 times a day, patient can continue ibuprofen and acetaminophen as directed Disposition Clinical Impression: Dental infection, Toothache Disposition: HOME SELF-CARE Condition: Good Instructions (If sedation given, give patient instructions): Dental Abscess (ED), Toothache (ED) Additional Instructions: Follow-up with your regular physician as directed. Return to the ER immediately if any symptoms worsen, new symptoms arise, or any other problems develop. Make a follow-up appointment with a dentist as soon as possible. Call Tuesday morning. Also, your regular doctor. Take the antibiotics as directed. You can continue ibuprofen and Tylenol as well. Prescriptions: Ibuprofen [Motrin] 600 mg PO Q8HR PRN #30 tab PRN Reason: Pain Penicillin V Potassium [Pen Vee K] 500 mg PO QID #40 tablet Acetaminophen [Tylenol] 500 mg PO Q4-6H PRN #24 tab PRN Reason: Pain Is patient prescribed a controlled substance at d/c from ED?: No Referrals: Macie Olea DO [Primary Care Provider] - 1-2 days Time of Disposition: 22:04
[2021-04-30 23:03] VITALS: BP 137/62; PULSE 72
== END 2021-04-30 23:06 | disposition home or self-care (01) ==
LOC: EC 20:22
DX: K04.7 Periapical abscess without sinus (principal); K08.89 Other specified disorders of teeth and supporting structures; E11.9 Type 2 diabetes mellitus without complications; I10 Essential (primary) hypertension; Z87.891 Personal history of nicotine dependence

== ENCOUNTER → 2021-07-11 | Outpatient (CLI) | payer BC ==
[2021-07-11 11:31] LABS: ALT 18 U/L (10-49); AST 20 U/L (14-35); African American GFR (CKD) 97.8 (60.0-200.0); Albumin 3.7 g/dL (3.8-4.9); Albumin/Globulin Ratio 1.54 (1.60-3.17); Alkaline Phosphatase 67 U/L (41-126); Blood Urea Nitrogen 19.1 mg/dL (9.0-27.0); Calcium 8.8 mg/dL (8.7-10.3); Carbon Dioxide 27.6 mmol/L (20.0-27.5); Chloride 105 mmol/L (96-109); Chol/HDL Ratio 3.19 Ratio; Globulin 2.4 g/dL (1.6-3.3); Glucose 168 mg/dL (70-110); Non-African American GFR(CKD) 84.4 (60.0-200.0); Potassium 5.1 mmol/L (3.5-5.5); Sodium 140 mmol/L (135-145); Total Protein 6.1 g/dL (6.2-8.2); VLDL Calculation 10.46 mg/dL (5.00-40.00)
== END | disposition home or self-care (01) ==
LOC: LABWHC1 08:29
PROVIDERS: ATTEND Internal Medicine Endocrinology, Diabetes & Metabolism
DX: E10.65 Type 1 diabetes mellitus with hyperglycemia (principal)
CPT/HCPCS: 36415; 80053; 80061; 82043; 82570; 83036; 84443

== ENCOUNTER → 2022-02-25 | Outpatient (CLI) | payer BC ==
[2022-02-25 11:05] LABS: ALT 19 U/L (10-49); AST 19 U/L (14-35); African American GFR (CKD) 107.4 (60.0-200.0); Albumin 3.7 g/dL (3.8-4.9); Albumin/Globulin Ratio 1.95 (1.60-3.17); Alkaline Phosphatase 79 U/L (41-126); BUN/Creat Ratio 17.07 Ratio (12.00-20.00); Blood Urea Nitrogen 15.7 mg/dL (9.0-27.0); Carbon Dioxide 28.3 mmol/L (20.0-27.5); Chloride 104 mmol/L (96-109); Chol/HDL Ratio 3.85 Ratio; Globulin 1.9 g/dL (1.6-3.3); Glucose 151 mg/dL (70-110); Non-African American GFR(CKD) 92.7 (60.0-200.0); Potassium 4.9 mmol/L (3.5-5.5); Sodium 141 mmol/L (135-145); Total Protein 5.6 g/dL (6.2-8.2); VLDL Calculation 16.92 mg/dL (5.00-40.00)
[2022-02-25 11:08] LABS: Microalbumin Creatinine Ratio <30 mg/g Creat (0-30)
== END | disposition home or self-care (01) ==
LOC: LABWHC1 07:27
PROVIDERS: ATTEND Internal Medicine Endocrinology, Diabetes & Metabolism
DX: E10.65 Type 1 diabetes mellitus with hyperglycemia (principal)
CPT/HCPCS: 36415; 80053; 80061; 82043; 82570; 83036; 84443

== ENCOUNTER → 2022-05-21 | Outpatient (CLI) | payer BC ==
--- NOTE | 2022-05-22 09:34 | US ---
EXAMINATION TYPE: US kidneys/renal and bladder DATE OF EXAM: 05/21/2022 COMPARISON: CLINICAL HISTORY: N20.1 CALCULUS OF URETER. Hx left renal stone with hydronephrosis. No pain at this time. EXAM MEASUREMENTS: Right Kidney: 11.5 x 5.4 x 5.6 cm Left Kidney: 12.7 x 6.0 x 5.7 cm Right Kidney: No hydronephrosis or masses seen Left Kidney: No hydronephrosis or masses seen Bladder: Distended, anechoic Bilateral Jets not seen There is no evidence for hydronephrosis at this point in time. No nephrolithiasis is seen. No denia s are identified. The urinary bladder is anechoic. Bilateral ureteral jets are seen. IMPRESSION: Normal renal ultrasound.
== END | disposition home or self-care (01) ==
LOC: RADUSWWP 16:05
PROVIDERS: ATTEND Urology
DX: N20.1 Calculus of ureter (principal)
CPT/HCPCS: 76770

== ENCOUNTER → 2022-06-19 | Outpatient (CLI) | payer BC ==
[2022-06-19 13:50] LABS: Microalbumin Creatinine Ratio <30 mg/g Creat (0-30)
[2022-06-19 13:55] LABS: ALT 21 U/L (10-49); AST 25 U/L (14-35); African American GFR (CKD) 110.3 (60.0-200.0); Albumin 3.9 g/dL (3.8-4.9); Albumin/Globulin Ratio 1.86 (1.60-3.17); Alkaline Phosphatase 68 U/L (41-126); BUN/Creat Ratio 19.78 Ratio (12.00-20.00); Blood Urea Nitrogen 17.8 mg/dL (9.0-27.0); Calcium 9.2 mg/dL (8.7-10.3); Carbon Dioxide 28.7 mmol/L (20.0-27.5); Chloride 105 mmol/L (96-109); Chol/HDL Ratio 3.79 Ratio; Globulin 2.1 g/dL (1.6-3.3); Glucose 118 mg/dL (70-110); LDL Cholesterol,Calculated 105.8 mg/dL (0.0-131.0); Non-African American GFR(CKD) 95.1 (60.0-200.0); Potassium 4.9 mmol/L (3.5-5.5); Sodium 143 mmol/L (135-145); VLDL Calculation 14.88 mg/dL (5.00-40.00)
== END | disposition home or self-care (01) ==
LOC: LABWHC1 08:18
PROVIDERS: ATTEND Internal Medicine Endocrinology, Diabetes & Metabolism
DX: E10.65 Type 1 diabetes mellitus with hyperglycemia (principal)
CPT/HCPCS: 36415; 80053; 80061; 82043; 82570; 83036; 84443

== ENCOUNTER → 2023-01-28 | Outpatient (CLI) | payer BC ==
[2023-01-28 11:09] LABS: BUN/Creat Ratio 21.22 Ratio (12.00-20.00); Blood Urea Nitrogen 19.1 mg/dL (9.0-27.0); Chloride 104 mmol/L (96-109); Chol/HDL Ratio 4.12 Ratio; Glucose 176 mg/dL (70-110); LDL Cholesterol,Calculated 122.7 mg/dL (0.0-131.0); Potassium 5.2 mmol/L (3.5-5.5); Sodium 141 mmol/L (135-145); VLDL Calculation 12.86 mg/dL (5.00-40.00)
[2023-01-28 11:10] LABS: ALT 21 U/L (10-49); AST 22 U/L (14-35); Albumin 3.6 g/dL (3.8-4.9); Albumin/Globulin Ratio 1.89 Ratio (1.60-3.17); Alkaline Phosphatase 67 U/L (41-126); Calcium 8.9 mg/dL (8.7-10.3); Carbon Dioxide 27.8 mmol/L (21.6-31.8); Globulin 1.9 g/dL (1.6-3.3); Total Bilirubin 0.4 mg/dL (0.3-1.2); Total Protein 5.5 g/dL (6.2-8.2)
== END | disposition home or self-care (01) ==
LOC: LABWHC1 07:15
PROVIDERS: ATTEND Internal Medicine Endocrinology, Diabetes & Metabolism
DX: E10.65 Type 1 diabetes mellitus with hyperglycemia (principal)
CPT/HCPCS: 36415; 80053; 80061; 82043; 82570; 83036; 84443

== ENCOUNTER 2023-04-20 17:43 | Emergency (ER) | payer BC ==
--- NOTE | 2023-04-20 18:25 | ED ---
Abdominal Pain HPI <Marybeth Beach - Last Filed: 04/20/23 18:24> <Rody Cabrera - Last Filed: 04/23/23 08:33> - General Stated Complaint: kidney stone Time Seen by Provider: 04/20/23 18:24 - History of Present Illness Initial Comments: Patient is a 57-year-old gentleman presents emergency room complaints of some onset of right-sided flank pain and vomiting that started about a hour prior to arrival emergency room. Denies any history of kidney stones. Does drink a lot of coffee and tea. (Marybeth Beach) 57-year-old male presents to the emergency department with sudden onset right flank pain and vomiting that started 1 hour prior to hospital arrival. He has had history of similar pain in the past as he does have a history of kidney stones. Denies any hematuria. No fevers. Denies hematuria or dysuria. No diarrhea, constipation, black or bloody stools. He has not taken anything for the pain before coming in. No other alleviating, precipitating modifying factors (Rody Cabrera) - Related Data Home Medications Medication Instructions Recorded Confirmed INSULIN ASPART (NovoLOG) [NovoLOG] 0 unit SQ CONTINUOUS 05/27/14 02/25/21 Atorvastatin [Lipitor] 40 mg PO HS 05/29/14 02/25/21 lisinopriL 30 mg PO HS 02/19/21 02/25/21 Previous Rx's Medication Instructions Recorded Acetaminophen [Tylenol] 500 mg PO Q4-6H PRN #24 tab 04/30/21 Ibuprofen [Motrin] 600 mg PO Q8HR PRN #30 tab 04/30/21 Penicillin V Potassium [Pen Vee K] 500 mg PO QID #40 tablet 04/30/21 Ketorolac [Toradol] 10 mg PO Q8HR #15 tab 04/20/22 Tamsulosin [Flomax] 0.4 mg PO DAILY #7 cap 04/20/22 HYDROcodone/APAP 7.5-325MG [[place] 1 tab PO Q4HR PRN 3 Days #18 tab 04/20/23 7.5-325] Ondansetron Odt [Zofran Odt] 4 mg PO Q8HR PRN #15 tab 04/20/23 Tamsulosin HCl [Flomax] 0.4 mg PO DAILY #14 cap 04/20/23 Allergies Allergy/AdvReac Type Severity Reaction Status Date / Time No Known Allergies Allergy Verified 04/20/23 18:31 Review of Systems ROS Other: All systems not noted in ROS Statement are negative. <Marybeth Beach - Last Filed: 04/20/23 18:24> ROS Other: All systems not noted in ROS Statement are negative. <Rody Cabrera Diana - Last Filed: 04/23/23 08:33> ROS Statement: Those systems with pertinent positive or pertinent negative responses have been documented in the HPI. Past Medical History Past Medical History: Diabetes Mellitus, Hyperlipidemia, Hypertension Additional Past Medical History / Comment(s): Insulin pump, Hx of colon polyps. History of Any Multi-Drug Resistant Organisms: None Reported Past Surgical History: Orthopedic Surgery Additional Past Surgical History / Comment(s): LEFT ROTATOR CUFF. Rt Hand Past Anesthesia/Blood Transfusion Reactions: No Reported Reaction Past Psychological History: No Psychological Hx Reported Smoking Status: Former smoker Past Alcohol Use History: None Reported Past Drug Use History: None Reported - Past Family History Brother(s) Family Medical History: Cancer <Marybeth Beach - Last Filed: 04/20/23 18:24> General Exam <Marybeth Beach - Last Filed: 04/20/23 18:24> General appearance: alert, in no apparent distress Head exam: Present: atraumatic, normocephalic, normal inspection Eye exam: Present: normal appearance, PERRL, EOMI. Absent: scleral icterus, conjunctival injection, periorbital swelling ENT exam: Present: normal exam, mucous membranes moist Neck exam: Present: normal inspection. Absent: tenderness, meningismus, lymphadenopathy Respiratory exam: Present: normal lung sounds bilaterally. Absent: respiratory distress, wheezes, rales, rhonchi, stridor Cardiovascular Exam: Present: regular rate, normal rhythm, normal heart sounds. Absent: systolic murmur, diastolic murmur, rubs, gallop, clicks GI/Abdominal exam: Present: soft, normal bowel sounds. Absent: distended, tenderness, guarding, rebound, rigid Extremities exam: Present: normal inspection, full ROM, normal capillary refill. Absent: tenderness, pedal edema, joint swelling, calf tenderness Back exam: Present: normal inspection Neurological exam: Present: alert, oriented X3, CN II-XII intact Psychiatric exam: Present: normal affect, normal mood Skin exam: Present: warm, dry, intact, normal color. Absent: rash <Rody Cabrera - Last Filed: 04/23/23 08:33> - General Exam Comments Initial Comments: Visual Physical Exam Vital signs reviewed General: Well-appearing, nontoxic, no acute distress. Head: Normocephalic, atraumatic Eyes: PERRLA, EOMI ENT: Airway patent Chest: Nonlabored breathing Skin: No visual rash, normal skin tone Neuro: Alert and oriented 3 Musculoskeletal: No gross abnormalities (Marybeth Beach) Course Vital Signs 04/20/23 04/20/23 04/20/23 18:28 22:20 23:47 Temperature 99.0 F Pulse Rate 76 71 70 Respiratory 18 16 16 Rate Blood Pressure 167/80 164/87 154/73 O2 Sat by Pulse 98 Oximetry 04/20/23 23:59 Temperature Pulse Rate 75 Respiratory 16 Rate Blood Pressure 153/73 O2 Sat by Pulse 97 Oximetry Medical Decision Making <Marybeth Beach - Last Filed: 04/20/23 18:24> - Lab Data Result diagrams: 04/20/23 19:16 04/20/23 19:16 <Rody Cabrera - Last Filed: 04/23/23 08:33> - Medical Decision Making Quick note portion completed by myself, electronically signed Marybeth Beach, PAC (Marybeth Beach) Was pt. sent in by a medical professional or institution (, PA, OYSTER FISHERMAN, urgent care, hospital, or usp...) When possible be specific @ -No Did you speak to anyone other than the patient for history (EMS, parent, family, police, friend...)? What history was obtained from this source @ -No Did you review nursing and triage notes (agree or disagree)? Why? @ -I reviewed and agree with nursing and triage notes Were old charts reviewed (outside hosp., previous admission, EMS record, old EKG, old radiological studies, urgent care reports/EKG's, usp records)? Report findings @ -No old charts were reviewed Differential Diagnosis (chest pain, altered mental status, abdominal pain women, abdominal pain men, vaginal bleeding, weakness, fever, dyspnea, syncope, headache, dizziness, GI bleed, back pain, seizure, CVA, palpatations, mental health, musculoskeletal)? @ -Differential Abdominal Pain Men: Appendicitis, cholecystitis, diverticulosis, ischemic bowel, pancreatitis, hepatitis, UTI, gastroenteritis, AAA, incarcerated hernia, bowel obstruction, constipation, inflammatory bowel, hepatitis, peptic ulcer disease, splenic infarction, perforated viscus, testicular torsion, this is not meant to be an all-inclusive list EKG interpreted by me (3pts min.). @ -Not done X-rays interpreted by me (1pt min.). @ -None done CT interpreted by me (1pt min.). @ -Yes and demonstrates a right-sided ureteral stone U/S interpreted by me (1pt. min.). @ -None done What testing was considered but not performed or refused? (CT, X-rays, U/S, labs)? Why? @ -None What meds were considered but not given or refused? Why? @ -None Did you discuss the management of the patient with other professionals (professionals i.e. , PA, OYSTER FISHERMAN, lab, RT, psych nurse, social work therapist, order entry specialist, teacher, attendance officer, sr community manager)? Give summary @ -No Was smoking cessation discussed for >3mins.? @ -No Was critical care preformed (if so, how long)? @ -No Were there social determinants of health that impacted care today? How? (Homelessness, low income, unemployed, alcoholism, drug addiction, transportation, low edu. Level, literacy, decrease access to med. care, halfway, rehab)? @ -No Was there de-escalation of care discussed even if they declined (Discuss DNR or withdrawal of care, Hospice)? DNR status @ -No What co-morbidities impacted this encounter? (DM, HTN, Smoking, COPD, CAD, Cancer, CVA, ARF, Chemo, Hep., AIDS, mental health diagnosis, sleep apnea, morbid obesity)? @ -None Was patient admitted / discharged? Hospital course, mention meds given and route, prescriptions, significant lab abnormalities, going to OR and other pertinent info. @ -Upon arrival patient placed into room 24. Thorough history and physical exam was performed. IV access established. Laboratory studies are conducted. Toradol and morphine ordered for pain. CT was performed which demonstrates a right-sided ureteral stone at the ureterovesicular junction. Patient is near pain-free after the pain medication. Patient will be discharged home with prescriptions for Flomax, [place] and Zofran. Instructed to take the medications as directed. Follow-up with his doctor and return for any new or worsening symptoms. Patient was agreeable to plan he was discharged in stable condition Undiagnosed new problem with uncertain prognosis? @ -No Drug Therapy requiring intensive monitoring for toxicity (Heparin, Nitro, Insulin, Cardizem)? @ -No Were any procedures done? @ -No Diagnosis/symptom? @ -Acute left flank pain, acute ureterolithiasis with hydronephrosis Acute, or Chronic, or Acute on Chronic? @ -Acute Uncomplicated (without systemic symptoms) or Complicated (systemic symptoms)? @ -Complicated Side effects of treatment? @ -No Exacerbation, Progression, or Severe Exacerbation? @ -No Poses a threat to life or bodily function? How? (Chest pain, [place], [place], pneumonia, PE, COPD, DKA, ARF, appy, cholecystitis, CVA, Diverticulitis, Homicidal, Suicidal, threat to staff... and all critical care pts) @ -No (Rody Cabrera) - Lab Data Lab Results 04/20/23 04/20/23 04/20/23 Range/Units 18:46 19:16 19:16 WBC 11.2 H (3.8-10.6) k/uL RBC 4.58 (4.30-5.90) m/uL Hgb 15.0 (13.0-17.5) gm/dL Hct 44.1 (39.0-53.0) % MCV 96.3 (80.0-100.0) fL MCH 32.7 (25.0-35.0) pg MCHC 33.9 (31.0-37.0) g/dL RDW 12.7 (11.5-15.5) % Plt Count 269 (150-450) k/uL MPV 8.2 Neutrophils % 77 % Lymphocytes % 11 % Monocytes % 6 % Eosinophils % 3 % Basophils % 0 % Neutrophils # 8.6 H (1.3-7.7) k/uL Lymphocytes # 1.3 (1.0-4.8) k/uL Monocytes # 0.7 (0-1.0) k/uL Eosinophils # 0.4 (0-0.7) k/uL Basophils # 0.0 (0-0.2) k/uL Sodium 134 L (137-145) mmol/L Potassium 4.4 (3.5-5.1) mmol/L Chloride 102 (98-107) mmol/L Carbon Dioxide 29 (22-30) mmol/L Anion Gap 3 mmol/L BUN 24 H (9-20) mg/dL Creatinine 1.09 (0.66-1.25) mg/dL Est GFR (CKD-EPI)AfAm 87 (>60 ml/min/1.73 sqM) Est GFR (CKD-EPI)NonAf 75 (>60 ml/min/1.73 sqM) Glucose 176 H (74-99) mg/dL Calcium 8.9 (8.4-10.2) mg/dL Total Bilirubin 0.5 (0.2-1.3) mg/dL AST 34 (17-59) U/L ALT 24 (4-49) U/L Alkaline Phosphatase 85 (38-126) U/L Total Protein 6.0 L (6.3-8.2) g/dL Albumin 3.5 (3.5-5.0) g/dL Lipase 58 (23-300) U/L Urine Color Yellow Urine Appearance Cloudy (Clear) Urine pH 6.5 (5.0-8.0) Ur Specific [place] 1.023 (1.001-1.035) Urine Protein 1+ H (Negative) Urine Glucose (UA) Negative (Negative) Urine Ketones Negative (Negative) Urine Blood Moderate H (Negative) Urine Nitrite Negative (Negative) Urine Bilirubin Negative (Negative) Urine Urobilinogen 6.0 (<2.0) mg/dL Ur Leukocyte Esterase Negative (Negative) Urine RBC 93 H (0-5) /hpf Urine WBC 2 (0-5) /hpf Urine Mucus Moderate H (None) /hpf Disposition <Marybeth Beach - Last Filed: 04/20/23 18:24> Is patient prescribed a controlled substance at d/c from ED?: Yes When asked, does pt state using other controlled substances?: No If prescribed controlled substance>3 days was MAPS reviewed?: Prescribed <3 Days If opioid is for acute pain is fill amount 7 days or less?: Yes Time of Disposition: 23:39 <Rody Cabrera - Last Filed: 04/23/23 08:33> Clinical Impression: Right flank pain, Ureteral stone with hydronephrosis Disposition: HOME SELF-CARE Condition: Stable Instructions (If sedation given, give patient instructions): Kidney Stones (ED) Additional Instructions: Increase fluid intake. take the [place] as needed for pain control. Use the Zofran as needed for nausea. Follow-up with your primary care doctor. Return should you have uncontrolled pain, fever or inability to urinate Prescriptions: Tamsulosin HCl [Flomax] 0.4 mg PO DAILY #14 cap HYDROcodone/APAP 7.5-325MG [[place] 7.5-325] 1 tab PO Q4HR PRN 3 Days #18 tab PRN Reason: Pain Ondansetron Odt [Zofran Odt] 4 mg PO Q8HR PRN #15 tab PRN Reason: Nausea Referrals: Macie Olea DO [Primary Care Provider] - 1-2 days
[2023-04-20 18:34] VITALS: TEMP 99
[2023-04-20 19:14] LABS: Appearance,Urine Cloudy (Clear); Bilirubin,Urine Negative (Negative); Blood,Urine Moderate (Negative); Color,Urine Yellow; Glucose,Urine (UA) Negative (Negative); Ketones,Urine Negative (Negative); Leukocyte Esterase,Urine Negative (Negative); Mucus,Urine Moderate /hpf; Nitrite,Urine Negative (Negative); PH, Urine 6.5 (5.0-8.0); Protein,Urine 1+ (Negative); RBC,Urine 93 /hpf (0-5); Specific Gravity,Urine 1.023 (1.001-1.035); WBC,Urine 2 /hpf (0-5)
[2023-04-20 19:23] LABS: Basophils % (A) 0 %; Eosinophils # (A) 0.4 k/uL (0-0.7); Eosinophils % (A) 3 %; HCT 44.1 % (39.0-53.0); Lymphocytes # (A) 1.3 k/uL (1.0-4.8); Lymphocytes % (A) 11 %; MCH 32.7 pg (25.0-35.0); MCHC 33.9 g/dL (31.0-37.0); MCV 96.3 fL (80.0-100.0); Mean Platelet Volume 8.2; Monocytes # (A) 0.7 k/uL (0-1.0); Monocytes % (A) 6 %; Neutrophils # (A) 8.6 k/uL (1.3-7.7); Neutrophils % (A) 77 %; Platelet Count 269 k/uL (150-450); RBC 4.58 m/uL (4.30-5.90); RDW 12.7 % (11.5-15.5); WBC 11.2 k/uL (3.8-10.6)
[2023-04-20 19:47] LABS: ALT 24 U/L (4-49); AST 34 U/L (17-59); African American GFR (CKD) 87 (>60 ml/min/1.73 sqM); Albumin 3.5 g/dL (3.5-5.0); Alkaline Phosphatase 85 U/L (38-126); Anion Gap 3 mmol/L; Blood Urea Nitrogen 24 mg/dL (9-20); Calcium 8.9 mg/dL (8.4-10.2); Carbon Dioxide 29 mmol/L (22-30); Chloride 102 mmol/L (98-107); Glucose 176 mg/dL (74-99); Lipase 58 U/L (23-300); Non-African American GFR(CKD) 75 (>60 ml/min/1.73 sqM); Potassium 4.4 mmol/L (3.5-5.1); Sodium 134 mmol/L (137-145); Total Bilirubin 0.5 mg/dL (0.2-1.3)
--- NOTE | 2023-04-20 22:10 | CT ---
EXAMINATION TYPE: CT renal stones wo con CT DLP: 611.7 mGycm, Automated exposure control for dose reduction was used. DATE OF EXAM: 04/20/2023 9:44 PM COMPARISON: 04/20/2022 CLINICAL INDICATION:Male, 57 years old with history of R Flank pain and vomiting; right flank pain on set today with nausea and vomiting TECHNIQUE: Axial CT renal stones wo con;Sagittal and coronal reformats were created on a separate wo rkstation. Contrast used: mL of , (none if empty) Oral contrast used: (none if empty) FINDINGS: LOWER CHEST: Unremarkable ABDOMEN LIVER: Unremarkable GALLBLADDER AND BILE DUCTS: Unremarkable. PANCREAS: Unremarkable. SPLEEN: Unremarkable. ADRENAL GLANDS: Unremarkable. KIDNEYS AND URETERS: Mild right hydronephrosis secondary obstructing 3 mm calculus at the ureterovesi cular junction. Additional nonobstructing calculi bilaterally measuring up to 13 x 7 mm and the left measuring 3 mm. No left obstructive uropathy. PELVIS BLADDER: Nondistended and grossly unremarkable. REPRODUCTIVE: Unremarkable. ABDOMEN & PELVIS STOMACH AND BOWEL: Small hiatal hernia. No evidence of bowel obstruction. PERITONEUM/RETROPERITONEUM: No evidence of pneumoperitoneum or free fluid. VASCULATURE: No evidence of aortic aneurysm. MUSCULOSKELETAL: No acute osseous abnormalities. Moderate disc degeneration changes are present throu ghout the thoracolumbar spine. LYMPH NODES: No gross evidence for lymphadenopathy. SOFT TISSUE/ABDOMINAL WALL: Unremarkable IMPRESSION: Mild right hydronephrosis secondary obstructing 3 mm calculus at the ureterovesicular junction. Addit ional nonobstructing calculi bilaterally measuring up to 13 x 7 mm and the left measuring 3 mm.
[2023-04-20] MEDS: TAMSULOSIN 0.4 MG CAP.ER.24H PO STA (22:28)
[2023-04-20] MEDS: ONDANSETRON 4 MG/2 ML VIAL IVP STA (22:29)
[2023-04-20] MEDS: SODIUM CHLORIDE 0.9% 500 ML 500 ML IV STA (22:31)
[2023-04-20] MEDS: MORPHINE SULFATE 4 MG/ML SYRINGE IVP STA (22:31)
[2023-04-20] MEDS: KETOROLAC 15 MG/ML 1 ML VIAL IVP STA (22:31)
[2023-04-20] MEDS: SODIUM CHLORIDE 0.9% 1,000 ML IV STA (22:31)
[2023-04-20 22:45] VITALS: RESP 16
[2023-04-20] MEDS: ACET/COD 300 MG/30 MG STARTER PACK 6 TAB BTL PO STA (23:58)
[2023-04-21 00:14] VITALS: BP 153/73; PULSE 75
== END 2023-04-21 00:05 | disposition home or self-care (01) ==
LOC: EC 17:43
DX: N13.2 Hydronephrosis with renal and ureteral calculous obstruction (principal); E11.9 Type 2 diabetes mellitus without complications; E78.5 Hyperlipidemia, unspecified; I10 Essential (primary) hypertension; Z87.891 Personal history of nicotine dependence; Z79.4 Long term (current) use of insulin; Z79.899 Other long term (current) drug therapy
CPT/HCPCS: 36415; 80053; 83690; 85025; 81001; 74150; 99284; 96374; 96375 ×2; 96361; J2270; J2405; J1885

== ENCOUNTER 2023-07-01 08:37 | Day surgery (SDC) | payer BC ==
[2023-06-29 16:54] VITALS: BMI 27.1
[2023-07-01] MEDS: LACTATED RINGERS 1,000 ML IV SCH (09:22)
[2023-07-01] MEDS: LIDOCAINE 1% (10MG/ML) FOR IV START INTRADERMA PRN (09:22)
[2023-07-01 09:23] LABS: Glucose,Whole Blood 231 mg/dL (70-110)
[2023-07-01] MEDS ORDERED: PROPOFOL 10 MG/ML 20 ML VIAL IV ONE (09:27)
[2023-07-01] MEDS ORDERED: fentaNYL (PF) 50 MCG/ML 2 ML AMP ONE (09:27)
[2023-07-01 09:42] VITALS: TEMP 98.6
--- NOTE | 2023-07-01 09:53 | P.PCN ---
Date of Procedure: 07/01/23 Procedure(s) Performed: BRIEF HISTORY: Patient is a 57-year-old pleasant white male scheduled for an elective colonoscopy as a part of follow-up of large hyperplastic rectal polyps noted on colonoscopy 7 years ago. Last colonoscopy was in [facility] went endoscopic mucosal resection of the circumferential rectal polyp in June 2022. He scheduled for a follow-up colonoscopy today.. PROCEDURE PERFORMED: Colonoscopy with biopsy and snare polyp at PREOPERATIVE DIAGNOSIS: Follow-up multiple multiple hyperplastic polyps in the sigmoid colon and rectum diagnosed 7 years ago. IV sedation per Anesthesia. PROCEDURE: After informed consent was obtained, the patient, was brought into the endoscopy unit. IV sedation was administered by Anesthesia under continuous monitoring. Digital rectal examination was normal. Initially the Olympus CF-160 flexible video colonoscope was then inserted in the rectum, gradually advanced into the cecum without any difficulty. Careful examination was performed as the scope was gradually being withdrawn. Ileocecal valve and the appendiceal orifice were visualized and appeared normal. Prep was excellent. Mucosa of the cecum, ascending colon, transverse colon, descending colon (sigmoid colon there were multiple polyps noted measuring between 7 to 10 mm in size all of which were removed by snare polypectomy. In the mid rectum there was a circumferential hyperplastic appearing polyp and multiple biopsies were done from this area.. Retroflexion was performed in the rectum and no lesions were seen. The patient tolerated the procedure well. IMPRESSION: Circumferential broad-based mid rectal polyp at 7 cm from the anal verge s/p multiple biopsies Multiple polyps in the sigmoid colon measuring between 7 mm to 1 cm in size most of which were removed by snare polypectomy Rest of the colon appeared normal RECOMMENDATIONS: Findings of this examination were discussed with the patient as well as his family. He was advised to follow-up with the biopsy results. He will be seen in the office in 2 weeks and further recommendations will be made.
[2023-07-01 10:03] LABS: Glucose,Whole Blood 213 mg/dL (70-110)
[2023-07-01 11:08] VITALS: BP 151/76; PULSE 78; RESP 16
== END 2023-07-01 10:31 | disposition home or self-care (01) ==
LOC: ORWHC2ENDO 08:37
PROVIDERS: ATTEND Internal Medicine Gastroenterology
DX: Z12.11 Encounter for screening for malignant neoplasm of colon (principal); K63.5 Polyp of colon; K62.1 Rectal polyp; Z79.899 Other long term (current) drug therapy; I10 Essential (primary) hypertension; E78.5 Hyperlipidemia, unspecified; E11.9 Type 2 diabetes mellitus without complications
CPT/HCPCS: 45380; 45385; J3010; J2704; 88305

== ENCOUNTER → 2024-02-24 | Day surgery (SDC) | payer BC ==
[~2024-02-24] MED LIST changes: -LACTATED RINGERS 1,000 ML IV SCH; -LIDOCAINE 1% (10MG/ML) FOR IV START INTRADERMA PRN
[2024-02-24 07:34] VITALS: RESP 16; TEMP 98.7
[2024-02-24 07:45] LABS: Glucose,Whole Blood 190 mg/dL (70-110)
[2024-02-24] MEDS: LACTATED RINGERS 1,000 ML IV SCH (07:46)
--- NOTE | 2024-02-24 08:40 | P.PCN ---
Date of Procedure: 02/24/24 Procedure(s) Performed: BRIEF HISTORY: Patient is a 58-year-old pleasant white male scheduled for an elective colonoscopy as a part of follow-up of colon polyps. He was initially diagnosed with colon polyps approximately 8 years ago. Multiple colon polyps were noted in the sigmoid colon and the rectum. He was referred to [facility] and he underwent resection of the polyps but complete polypectomy was not feasible. Since then he has been having yearly colonoscopies and the last one was done in June 2023 which revealed a circumferential broad-based mid rectal polyp and multiple biopsies were done from this area and the biopsies revealed inflamed hyperplastic polyp. For the last 4 months he started having rectal bleeding almost on a daily basis and has sensation of incomplete defecation. He is not scheduled for follow-up colonoscopy today. Procedure performed: Colonoscopy with snare polypectomy and biopsy PREOPERATIVE DIAGNOSIS: Follow-up large rectal polyps remittent rectal bleeding. IV sedation per Anesthesia. PROCEDURE: After informed consent was obtained, the patient, was brought into the endoscopy unit. IV sedation was administered by Anesthesia under continuous monitoring. Digital rectal examination was normal. Initially the Olympus CF-160 flexible video colonoscope was then inserted in the rectum, gradually advanced into the cecum without any difficulty. Careful examination was performed as the scope was gradually being withdrawn. Ileocecal valve and the appendiceal orifice were visualized and appeared normal. Prep was excellent. Mucosa of the cecum, ascending colon, transverse colon, descending colon appeared normal. The sigmoid colon at 30 cm from anal was able to polyps measuring 7 mm and 1 cm in size both which were removed by snare polypectomy., Recommend mid rectum there was circumferential broad-based polyps extending from 7 to 10 cm from the anal verge and multiple biopsies were done from these areas. Also there was also this polyp extended somewhat distally up to 3 cm from the anal verge. Retroflexion was performed in the rectum and no lesions were seen. The patient tolerated the procedure well. IMPRESSION: 7 mm and 1 cm sigmoid colon polyp status post polypectomy Circumferential broad-based distal to mid rectal polyp with friable mucosa status post multiple biopsies to rule out neoplasm. RECOMMENDATIONS: Findings of this examination were discussed with the patient as well as his family. He was advised to follow-up with the biopsy results. He will be seen in the office in 2 weeks..
[2024-02-24 08:59] VITALS: BP 164/81; PULSE 76
== END ==
LOC: ORWHC2ENDO 06:45
PROVIDERS: ATTEND Internal Medicine Gastroenterology
DX: K51.40 Inflammatory polyps of colon without complications (principal); K62.1 Rectal polyp; I10 Essential (primary) hypertension; E78.5 Hyperlipidemia, unspecified; E11.9 Type 2 diabetes mellitus without complications; Z79.4 Long term (current) use of insulin; Z79.899 Other long term (current) drug therapy
CPT/HCPCS: 88305; 45380; 45385; J2704

== ENCOUNTER → 2024-06-08 | Outpatient (CLI) | payer BC ==
[2024-06-08 10:51] LABS: ALT 22 U/L (10-49); AST 23 U/L (14-35); Albumin 3.5 g/dL (3.8-4.9); Albumin/Globulin Ratio 1.84 Ratio (1.60-3.17); Alkaline Phosphatase 66 U/L (41-126); Blood Urea Nitrogen 15.3 mg/dL (9.0-27.0); Calcium 8.8 mg/dL (8.7-10.3); Carbon Dioxide 26.5 mmol/L (21.6-31.8); Chloride 107 mmol/L (96-109); Chol/HDL Ratio 3.34 Ratio; Globulin 1.9 g/dL (1.6-3.3); Glucose 187 mg/dL (70-110); LDL Cholesterol,Calculated 76.4 mg/dL (0.0-131.0); Potassium 4.9 mmol/L (3.5-5.5); Sodium 142 mmol/L (135-145); Total Bilirubin 0.5 mg/dL (0.3-1.2); Total Protein 5.4 g/dL (6.2-8.2); VLDL Calculation 17.46 mg/dL (5.00-40.00)
[2024-06-08 21:17] LABS: Microalbumin Creatinine Ratio <7 mg/g Cr (0-30)
== END | disposition home or self-care (01) ==
LOC: LABWHC1 07:11
PROVIDERS: ATTEND Internal Medicine
DX: E10.65 Type 1 diabetes mellitus with hyperglycemia (principal)
CPT/HCPCS: 36415; 80053; 80061; 82043; 82570; 83036; 84681